=== PATIENT | female | born 1955 | race Caucasian/White ===

== ENCOUNTER 2018-09-13 13:46 | Emergency (ER) | payer MEDICAID ==
[~2018-09-13] VITALS: Ht 152.4 cm; Wt 60.5 kg
[2018-09-13 14:42] LABS: BASOPHILS % (AUTO) 0.2 % (0-1); EOSINOPHILS # (AUTO) 0.1 X10'3 (0-0.9); EOSINOPHILS % (AUTO) 1.6 % (0-6); HEMATOCRIT 37.9 % (35.0-45.0); HEMOGLOBIN 12.8 g/dl (12.0-16.0); LYMPHOCYTES # (AUTO) 0.8 X10'3 (1.1-4.8); LYMPHOCYTES % (AUTO) 12.1 % (21-51); MEAN CORPUSCULAR HEMOGLOBIN 30.2 PG (27.0-31.0); MEAN CORPUSCULAR HGB CONC 33.8 g/dL (33.0-36.5); MEAN CORPUSCULAR VOLUME 89.3 FL (78-98); MEAN PLATELET VOLUME 7.6 FL (7.4-10.4); MONOCYTES # (AUTO) 0.6 X10'3 (0-0.9); MONOCYTES % (AUTO) 9.2 % (2-12); NEUTROPHILS % (AUTO) 76.9 % (42-75); PLATELET COUNT 200 X10'3 (140-440); RED BLOOD COUNT 4.24 X10'6 (4.20-5.60); WHITE BLOOD COUNT 6.5 X10'3 (4.5-11.0)
[2018-09-13 14:54] LABS: ALANINE AMINOTRANSFERASE 27 U/L (12-78); ALBUMIN 3.8 G/DL (3.4-5.0); ALBUMIN/GLOBULIN RATIO 1.2 (1.1-1.5); ALKALINE PHOSPHATASE 72 IU/L (46-116); ANION GAP 6 (8-16); ASPARTATE AMINO TRANSFERASE 28 U/L (10-37); BILIRUBIN,TOTAL 0.5 MG/DL (0.1-1.0); BLOOD UREA NITROGEN 11 MG/DL (7-18); BUN/CREATININE RATIO 12.4 (6.6-38.0); CALCIUM 9.6 MG/DL (8.5-10.1); CHLORIDE 106 MMOL/L (99-107); CREATININE 0.89 MG/DL (0.40-0.90); GLUCOSE 79 MG/DL (70-104); INR 1.1 INR; PROTHROMBIN TIME 11.1 SECONDS (9.0-12.0); SODIUM 141 MMOL/L (135-145); TOTAL CARBON DIOXIDE 29.1 MMOL/L (24-32); eGFR 65 ML/MIN
[2018-09-13] MEDS ORDERED: normal saline 1000ML IV soln IV ONE (18:05)
[2018-09-13] MEDS ORDERED: normal saline 1000ML IV soln IVB ONE (18:05)
--- NOTE | 2018-09-13 18:16 | NUR ---
pt to CT
--- NOTE | 2018-09-13 18:35 | NUR ---
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
--- NOTE | 2018-09-13 20:05 | NUR ---
pt up to bedside commode, still unable to give urine sample, receiving 2nd liter NS
--- NOTE | 2018-09-13 20:25 | NUR ---
PT UP TO BEDSIDE COMMODE AGAIN, UNABLE TO URINATE,
--- NOTE | 2018-09-13 20:30 | NUR ---
IN AND OUT CATH DONE WITH STERILE TECHNIQUE, SAMPLE SENT TO LAB, PT IS RECEIVING 3RD LITER NS
[2018-09-13 20:47] LABS: CLARITY,URINE CLOUDY (Clear); COLOR,URINE YELLOW (Yellow); GLUCOSE, URINE NEGATIVE (Neg); KETONES,URINE NEGATIVE (Neg); LEUKOCYTE ESTERASE ,URINE LARGE (Neg); NITRITES, URINE NEGATIVE (Neg); OCCULT BLOOD,URINE TRACE-INTACT (Neg); PROTEIN,URINE NEGATIVE (Neg); UROBILINOGEN,URINE 0.2 E.U/dL (0.2-1.0)
[2018-09-13 20:48] LABS: URINE HCG NEGATIVE (NEG)
[2018-09-13 21:09] LABS: UA COLLECTION TYPE STRAIGHT CATH
[2018-09-13 21:10] LABS: RBC,URINE 0-2 /HPF (0-2); WBC,URINE TNTC /HPF (0-4)
[2018-09-13 21:11] LABS: BACTERIA,URINE FEW /HPF (Neg); SQUAMOUS EPITHELIAL CELL,UR FEW /LPF (FEW)
[2018-09-13 21:13] LABS: TRANSITIONAL EPI CELLS,URINE FEW /HPF; YEAST MANY /HPF (NEGATIVE)
[2018-09-13] MEDS ORDERED: CefTRIAXone 2gm/D5W 50ml 50 ML IV ONE (21:35)
[2018-09-13] MEDS ORDERED: CEPH500C5 PO (22:38)
--- NOTE | 2018-09-13 22:55 | NUR ---
pt c/o feeling need to urinate, has attempted several times while in ER, Dr Noble aware and gave verbal order for bladder scan, scan showed greater than 999ml in bladder
--- NOTE | 2018-09-13 23:05 | NUR ---
16 fr mendez inserted with sterile technique, no complications, pt brionna well
--- NOTE | 2018-09-13 23:14 | NUR ---
2500ml urine inital output
[2018-09-13 23:24] VITALS: BP 114/64
--- NOTE | 2018-09-13 23:24 | NUR ---
MURTAZA CARR AND PT DISCHARGED HOME WITH FAMILY
== END 2018-09-13 23:25 | disposition home or self-care (01) ==
LOC: ER 13:47
DX: N39.0 Urinary tract infection, site not specified (principal); R33.9 Retention of urine, unspecified; Z88.5 Allergy status to narcotic agent; Z79.2 Long term (current) use of antibiotics
CPT/HCPCS: 36415; 70450; 71045; 80053; 81001; 81025; 83605; 84145; 85025; 85610; 87040; 87088; 93005; 96361; 96365; 99284; J0696; J7030

== ENCOUNTER 2019-09-29 13:14 | Emergency (ER) | payer MEDICAID ==
[~2019-09-29] VITALS: Ht 162.6 cm; Wt 57.0 kg
--- NOTE | 2019-09-29 14:07 | NUR ---
PT WAS BROUGHT HERE BY HER SISTER.. PT STATES SHE IS A FALL RISK AT HOME. HX OF TAKEN OFF METHADONE BY HER DOCTOR. PT STATES SOMETIMES SHE GETS CONFUSED AND CANT EXPLAIN THING VERY WELL. HX OSTEOPOROSIS. PT IS GOING TO START USING HER WALKER NOW AT HOME.
[2019-09-29] MEDS ORDERED: TETanus/Pertussis (Acell)/Diphther VAC/PF (Tdap-Adult) 0.5ml syringe IMVAC ONE (14:35)
[2019-09-29] MEDS ORDERED: LIDOcaine 1% W/epiNEPHrine 1:200,000 10ml vial IJ ONE (14:35)
[2019-09-29] MEDS ORDERED: normal saline 1000ML IV soln IVB ONE (14:40)
[2019-09-29] MEDS ORDERED: iohexol 300mg/ml 100ml inj. ONE (14:50)
--- NOTE | 2019-09-29 15:24 | NUR ---
DR HOGAN IN ROOM FOR LIDOCAINE INJECTION TO FOREHEAD. DRESSING APPLIED WITH COBAN TO STOP ANY BLEEDING. PT TAKEN OUT TO CT VIA W/C FOR SCAN.
--- NOTE | 2019-09-29 15:58 | NUR ---
FOREHEAD LACERATION IRRIGATED WITH 250ML NS, COVERED WITH VASALINE GAUZE DRESSING, SECURED WITH GAUZE AND TAPE. PT TAKEN TO BATHROOM VIA W/C BY TECH TO COLLECT URINE SPECIMEN.
[2019-09-29] MEDS ORDERED: ACET-3068 PO (16:14)
[2019-09-29 16:26] VITALS: BP 136/68
== END 2019-09-29 16:59 | disposition home or self-care (01) ==
LOC: ER 13:15
DX: S22.31XA Fracture of one rib, right side, initial encounter for closed fracture (principal); S01.81XA Laceration without foreign body of other part of head, initial encounter; S50.02XA Contusion of left elbow, initial encounter; R42 Dizziness and giddiness; Z72.89 Other problems related to lifestyle; Z88.5 Allergy status to narcotic agent; Z88.2 Allergy status to sulfonamides; Z79.899 Other long term (current) drug therapy; W18.39XA Other fall on same level, initial encounter; Y93.89 Activity, other specified; Y92.89 Other specified places as the place of occurrence of the external cause; Y99.8 Other external cause status
CPT/HCPCS: 70450; 71100; 72125; 74177; 90471; 90715; 96361; 96374; 99285; J7030; Q9967

== ENCOUNTER 2019-09-29 18:48 | Emergency (ER) | payer MEDICAID ==
[~2019-09-29 18:48] MED LIST: ACET-3068 PO
--- NOTE | 2019-09-29 19:09 | NUR ---
Pt sister insisted that patient be evaluated again by MD for confusion. Pt was re-registered and brought into triage. Pt did not want to be evaluated again stating that she is not confused. Pt is A&Ox4 and was able to tell me everything that was done during her visit and what her follow up instructions were. Pt denies any symptoms of confusion or urinary symptoms. Pt relates there is some disagreement between she and her sister at times. Pt refuses to be triaged or evaluated at this time.
== END 2019-09-29 19:18 | disposition left against medical advice (07) ==
LOC: ER 18:48
DX: R41.0 Disorientation, unspecified (principal); Z53.21 Procedure and treatment not carried out due to patient leaving prior to being seen by health care provider

== ENCOUNTER 2023-10-08 13:23 | Emergency (ER) | payer MEDICARE, MEDICAID ==
[~2023-10-08] VITALS: Ht 152.4 cm; Wt 55.6 kg
[2023-10-08] MEDS: oxyCODONE/APAP 10/325mg tablet PO ONE (15:11)
[2023-10-08] MEDS: TETanus/Pertussis (Acell)/Diphther VAC/PF (Tdap-Adult) 0.5ml syringe IMVAC ONE (15:13)
[2023-10-08] MEDS: ondansetron 4mg rapidly disintigrating tab PO ONE (15:27)
[2023-10-08] MEDS ORDERED: HYDR-3965 PO (16:23)
[2023-10-08 16:26] VITALS: BP 145/66; PULSE 86; RESP 14; TEMP 98.2; O2SAT 96
== END 2023-10-08 16:31 | disposition home or self-care (01) ==
LOC: ER 13:23
DX: S52.501A Unspecified fracture of the lower end of right radius, initial encounter for closed fracture (principal); Z88.5 Allergy status to narcotic agent; Z88.2 Allergy status to sulfonamides; Z79.899 Other long term (current) drug therapy; W01.0XXA Fall on same level from slipping, tripping and stumbling without subsequent striking against object, initial encounter; Y93.89 Activity, other specified; Y92.89 Other specified places as the place of occurrence of the external cause; Y99.8 Other external cause status
CPT/HCPCS: 25605; 73080; 73090; 73100; 73110; 90471; 90715; 99284; A6222; A4565; A6258; A6446; A6449